=== PATIENT | female | born 1990 | race Caucasian/White ===

== ENCOUNTER → 2024-03-28 09:49 | Outpatient (BNVA) | payer OTHER, SELFPAY | PROVIDERS: Visit Provider Internal Medicine | DX: E07.9 Disorder of thyroid, unspecified (principal) | CPT/HCPCS: 36415; 84439; 84443 ==

== ENCOUNTER → 2024-06-30 10:27 | Outpatient (BNVA) | payer OTHER, SELFPAY | PROVIDERS: PCP Student in an Organized Health Care Education/Training Program; Visit Provider Internal Medicine | DX: E06.3 Autoimmune thyroiditis (principal) | CPT/HCPCS: 36415; 84439; 84443; 84480 ==

== ENCOUNTER → 2024-12-09 10:48 | Outpatient (BNVA) | payer OTHER, SELFPAY | PROVIDERS: PCP Student in an Organized Health Care Education/Training Program; Referring Provider Internal Medicine; Visit Provider Internal Medicine Rheumatology | DX: Z79.899 Other long term (current) drug therapy (principal) | CPT/HCPCS: 36415; 82306; 83520; 85651; 86140; 86480; 86704; 86803; 87340 ==

== ENCOUNTER → 2024-12-23 08:08 | Outpatient (BNVA) | payer OTHER, SELFPAY | PROVIDERS: PCP Student in an Organized Health Care Education/Training Program; Visit Provider Orthopaedic Surgery | DX: M79.642 Pain in left hand (principal); M79.641 Pain in right hand; M67.442 Ganglion, left hand; M67.441 Ganglion, right hand | CPT/HCPCS: 73130 ==

== ENCOUNTER 2025-01-21 07:09 | Day surgery (SDC) | payer OTHER, SELFPAY ==
[2025-01-21] VITALS (7 sets, daily range): BP systolic 120–142; BP diastolic 63–89; PULSE 65–84; RESP 14–18; TEMP 36.2–36.6; O2SAT 95–100; BMI 32.2
[2025-01-21 07:31] LABS: OR HCG Qualitative Urine Negative (Negative)
--- NOTE | 2025-01-21 07:45 | W.PM.OPSUD ---
Surgery/Procedure H&P Update DATE OF PROCEDURE: January 21, 2025 DATE H&P PERFORMED: 01/20/25 H&P UPDATE INFORMATION: I have reviewed H&P completed within last 30 days, I have examined patient prior to procedure and No changes to prior documentation PRIMARY INDICATION FOR PROCEDURE: Mucinous cyst right index finger PIP joint PLANNED PROCEDURE: Operation Date: 01/21/25 09:00 Proposed Procedures p RIGHT Index Finger Excision Of Ganglion Cyst(Right) - Sean Ferrell MD
--- NOTE | 2025-01-21 08:06 | ANES.PREANE2 ---
Pre-Anesthetic Assessment Height/Weight: Height 5 ft 3 in Weight 182 lb Temp Pulse Resp BP Pulse Ox O2 Del Method 97.9 F 65 18 137/88 99 Room Air 01/21/25 07:40 01/21/25 07:40 01/21/25 07:40 01/21/25 07:40 01/21/25 07:40 01/21/25 07:40 Preop Diagnosis: Ganglion cyst Operation Date: 01/21/25 09:00 Proposed Procedures p RIGHT Index Finger Excision Of Ganglion Cyst(Right) - Sean Ferrell MD Was Beta Homer taken within 24 hours: N/A Was Clonidine taken within 24 hours: N/A Last intake: Intake Last Liquid Date 01/20/25 Last Liquid Time 23:00 Last Solid Date 01/20/25 Last Solid Time 23:00 Social No alcohol and No tobacco Exam alert, oriented x 3, clear to auscultation bilaterally and regular rate & rhythm Airway Submandibular: within normal limits Cervical ROM: within normal limits Mallampati: Class I Dentition: full Anesthetic Plan ASA status: 2 Anesthesia: Choice Other: No prior issues with anesthesia NPO since yesterday evening History of hypothyroidism on Synthroid History of RA, very occasional prednisone use Denies any cardiac or pulmonary issues test negative Medications/Allergies Home Medications ?Medication ?Instructions ?Recorded ?Confirmed ?Last Taken ?Type levothyroxine 100 mcg tablet 100 mcg PO DAILY 03/28/24 01/20/25 01/21/25 History phentermine 37.5 mg tablet 37.5 mg PO DAILY 03/28/24 01/20/25 01/13/25 History zolpidem 10 mg tablet (Ambien) 10 mg PO PRN PRN Insomnia 03/28/24 01/20/25 Unknown History escitalopram oxalate 10 mg tablet 10 mg PO DAILY 10/13/24 01/20/25 01/20/25 History leflunomide 20 mg tablet 20 mg PO DAILY #30 tabs 12/09/24 01/20/25 01/20/25 Rx liothyronine 5 mcg tablet 5 mcg PO DAILY 01/20/25 01/20/25 01/20/25 History prednisone 20 mg tablet 20 mg PO PRN PRN joint pain flare 01/20/25 01/20/25 01/06/25 History Allergies Allergy/AdvReac Type Severity Reaction Status Date / Time promethazine (From Phenergan) Allergy Severe algy-seizur Verified 01/20/25 09:22 es walnut Allergy Unknown Verified 01/20/25 09:22 tramadol AdvReac Severe ADR-Seizure Verified 01/20/25 09:22 Current Medications Generic Name Dose Route Start Last Admin Trade Name Freq PRN Reason Stop Dose Admin Sodium Chloride 1,000 mls @ 30 mls/hr 01/21/25 07:30 01/21/25 07:46 Sodium Chloride 0.9% IV 01/22/25 07:29 30 mls/hr .Q24H ROX Administration PFSH Anesthesia Medical History (Updated 12/23/24 @ 08:58 by Sean Ferrell MD) Cyst of skin and subcutaneous tissue Immunization counseling High risk medication use Seronegative rheumatoid arthritis of both hands Depression with anxiety Tarsal tunnel syndrome Fibromyalgia Seizures stress induced Surgical History History of delivery x2 History of bilateral tubal ligation History of cholecystectomy History of appendectomy S/P foot surgery, right on bottom of foot maybe planters Family History Other Cancer Diabetes Heart disease Hypertension Rheumatoid arthritis Denies family history of Lupus (systemic lupus erythematosus) Migraines Stroke Social History Smoking and tobacco/nicotine status: never used tobacco/nicotine Substance/Drug Use: current Other substance/drug use details: medical marijuana
[2025-01-21] MEDS: ceFAZolin 2,000 mg SDV 2000 MG IVP (08:11)
--- NOTE | 2025-01-21 09:05 | PM.OP ---
Operative Report Date of procedure: January 21, 2025 Surgeon: Sean Ferrell MD Procedure: Preop diagnosis: Painful nodule dorsal aspect PIP joint index finger on the right Postoperative diagnosis: Same Procedure: Excisional biopsy soft tissue mass right index finger Surgeon: Sean Ferrell MD Anesthesia: IV sedation with local anesthetic Specimen: Soft tissue mass right index finger EBL: None Indications: Helen is a 34-year-old white female who presented to the orthopedic clinics for evaluation of painful nodules on the dorsal aspects of bilateral index fingers at the level of PIP joint. States has been going on for some time they get larger and smaller, and they are very painful and hinder her activities. Patient does have a history of rheumatoid arthritis and this could be rheumatoid nodules versus mucinous cyst coming from the joint line. After evaluation patient was offered excisional biopsy of the nodules doing 1 hand at a time so as not to handicap her too much. All risk benefits treatment alternatives discussed with her and she is agreeable to this at this time. Procedure: After obtaining her consent patient was taken the operative room placed on her [facility] and had IV sedation administered. Armboard was applied to this [facility] and right arm was prepped and draped usual fashion. After surgical timeout patient had 1% lidocaine plain injected into the base of her index finger right hand for anesthetic effect. Hand was then exsanguinated with the Esmarch wrap and Esmarch was used as a tourniquet on the mid forearm region on the right side. After testing for anesthetic effect perpendicular incision was made over the nodule on the dorsal aspect of her PIP joint right index finger. This was perpendicular to the axis of the finger. Sharp dissection taken down to subcutaneous tissues. Subsequently using tenotomy scissors skin edges were raised on either side of this mass. Tenotomy scissors were then used to dissect this off the campuzano of the extensor mechanism of the right index finger. Tissue was removed and mass. Further inspection found that there was a small rent in the campuzano going down through the tendon sheath. This was repaired with 4-0 Vicryl [id number] suture. Further evaluation found no other abnormalities. Skin was then closed with 3-0 nylon horizontal mattress sutures. Specimen was sent to pathology for evaluation. Wound was then cleaned and dried dressed Xeroform gauze sterile gauze dressing sterile fluff dressing Kerlix wrap and an Raimundo wrap for compression. Patient awakened transferred to cover room stable condition
--- NOTE | 2025-01-21 09:48 | P.ANESASSM_ITS ---
Pre-Anesthetic Assessment Height/Weight: Height 5 ft 3 in Weight 182 lb Temp Pulse Resp BP Pulse Ox O2 Del Method 97.2 F L 82 16 132/89 100 Room Air 01/21/25 09:12 01/21/25 09:40 01/21/25 09:40 01/21/25 09:40 01/21/25 09:40 01/21/25 09:40 Preop Diagnosis: Ganglion cyst Operation Date: 01/21/25 09:00 Proposed Procedures p RIGHT Index Finger Excision Of Ganglion Cyst(Right) - Sean Ferrell MD Last intake: Intake Last Liquid Date 01/20/25 Last Liquid Time 23:00 Last Solid Date 01/20/25 Last Solid Time 23:00 Medications/Allergies Home Medications ?Medication ?Instructions ?Recorded ?Confirmed ?Last Taken ?Type levothyroxine 100 mcg tablet 100 mcg PO DAILY 03/28/24 01/20/25 01/21/25 History phentermine 37.5 mg tablet 37.5 mg PO DAILY 03/28/24 0 01/20/25 01/13/25 History zolpidem 10 mg tablet (Ambien) 10 mg PO PRN PRN Insomn ia 03/28/24 01/20/25 Unknown History escitalopram oxalate 10 mg tablet 10 mg PO DAILY 10/1301/20/25 01/20/25 History leflunomide 20 mg tablet 20 mg PO DAILY #30 tabs 09/3001/20/25 01/20/25 Rx liothyronine 5 mcg tablet 5 mcg PO DAILY 01/20/2501/0601/20/25 History prednisone 20 mg tablet 20 mg PO PRN PRN joint pain flare 01/20/25 01/20/25 01/06/25 History hydrocodone 5 mg-acetaminophen 325 1 tab PO Q6H PRN pa in #30 tabs 01/21/25 Unknown Rx mg tablet Allergies Allergy/AdvReac Type Severity Reaction Status Date / Time promethazine (From Phenergan) Allergy Severe algy-seizur Verified 01/20/25 09:22 es walnut Allergy Unknown Verified 01/20/25 09:22 tramadol AdvReac Severe ADR-Seizure Verified 01/20/25 09:22 [facility] Anesthesia Medical History (Updated 12/23/24 @ 08:58 by Sean Ferrell MD) Cyst of skin and subcutaneous tissue Immunization counseling High risk medication use Seronegative rheumatoid arthritis of both hands Depression with anxiety Tarsal tunnel syndrome Fibromyalgia Seizures stress induced Surgical History History of delivery x2 History of bilateral tubal ligation History of cholecystectomy History of appendectomy S/P foot surgery, right on bottom of foot maybe planters Family History Other Cancer Diabetes Heart disease Hypertension Rheumatoid arthritis Denies family history of Lupus (systemic lupus erythematosus) Migraines Stroke Social History Smoking and tobacco/nicotine status: never used tobacco/nicotine Substance/Drug Use: current Other substance/drug use details: medical marijuana
--- NOTE | 2025-01-21 09:48 | ANE.PACU2 ---
Inpatient post-anesthesia follow up: Airway intact: Yes Vital signs: Temperature 97.2 F Pulse Rate 82 Respiratory Rate 16 Blood Pressure 132/89 Pulse Oximetry 100 Oxygen Delivery Me thod Room Air Oxygen Flow Rate Fraction of Inspir ed Oxygen Hydration adequate: Yes Nausea and vomiting: No Pain level: 1 Mental status: Baseline
== END 2025-01-21 09:48 | disposition home or self-care (01) ==
PROVIDERS: Student in an Organized Health Care Education/Training Program; PCP Student in an Organized Health Care Education/Training Program; Visit Provider Orthopaedic Surgery
PROC: (CPT 26160; principal; 2025-01-21 08:50)
DX: M67.441 Ganglion, right hand (principal); E03.9 Hypothyroidism, unspecified; M06.9 Rheumatoid arthritis, unspecified; F41.8 Other specified anxiety disorders; R56.9 Unspecified convulsions; F12.90 Cannabis use, unspecified, uncomplicated
CPT/HCPCS: 26160; 81025; 88304; J0690; J1100; J2250; J2405; J2704; J3010; J3490; J7030; J9999

== ENCOUNTER 2025-02-03 12:45 | Day surgery (SDC) | payer OTHER, SELFPAY ==
[2025-02-03 12:30] VITALS: BMI 32.2
[2025-02-03 14:11] LABS: OR HCG Qualitative Urine Negative (Negative)
--- NOTE | 2025-02-03 15:08 | W.PM.OPSUD ---
Surgery/Procedure H&P Update DATE OF PROCEDURE: February 03, 2025 DATE H&P PERFORMED: 02/03/25 H&P UPDATE INFORMATION: I have reviewed H&P completed within last 30 days, I have examined patient prior to procedure and No changes to prior documentation PREOP DIAGNOSIS: Mucoid cyst PIP joint left index finger PLANNED PROCEDURE: Operation Date: 02/03/25 15:25 Proposed Procedures p LEFT Index Finger Excision Of Ganglion Cyst(Left) - Sean Ferrell MD
[2025-02-03] MEDS: ceFAZolin 2,000 mg SDV 2000 MG IVP (15:11)
[2025-02-03] MEDS: BUPivacaine 0.5% INJ 10 mL INJECTION (15:13)
[2025-02-03 15:48] VITALS: BP 125/80; PULSE 85; RESP 25; TEMP 36.9; O2SAT 95
[2025-02-03 15:53] VITALS: BP 122/74; PULSE 82; RESP 18; O2SAT 97
[2025-02-03 15:58] VITALS: BP 129/78; PULSE 80; RESP 17; O2SAT 98
[2025-02-03 16:03] VITALS: BP 125/87; PULSE 97; RESP 17; TEMP 36.2; O2SAT 96
--- NOTE | 2025-02-03 16:13 | PM.OP ---
Operative Report Date of procedure: February 03, 2025 Surgeon: Sean Ferrell MD Procedure: Preoperative diagnosis: Mucoid cyst dorsal aspect PIP joint left index finger Postoperative diagnosis: Same Procedure: Excisional biopsy mucoid cyst left index finger Surgeon: Sean Ferrell MD Anesthesia: IV sedation with local anesthetic EBL: None Specimens: None Indications: Helen is a 34-year-old white female who is previously had a mucoid cyst removed from her right index finger. She has had multitude of ganglion cyst other cystic problems on her body that have been surgically removed. She was been to be seen about bilateral cysts on each index finger has already undergone excisional biopsy of the right index finger now is requesting surgery on the left index finger. Patient is well aware all risk benefits treatment alternatives. Procedure: After obtaining her consent patient taken to the operating room placed operative table supine position IV sedation was administered. Left upper extremity and hand were prepped and draped usual fashion. After surgical timeout digital block was applied to the left index finger using half percent Marcaine plain. Once good anesthesia been achieved transverse incision made over the dorsum of the PIP joint of the left index finger directly over the cystic area. Sharp dissected gone down to subcutaneous tissues. Tenotomy scissors were then used to dissect out the subcutaneous tissue around the extensor campuzano and the cyst. Extensor campuzano was divided longitudinally along course of its fibers and then the cyst was shelled out underneath using small rongeurs as well as tenotomy scissors and pickups. Once all material was removed extensor campuzano was repaired with 4-0 Vicryl [id number] suture. Skin was then closed with 4-0 nylon horizontal mattress sutures. Wounds were then dressed with Xeroform gauze sterile gauze dressing Wesley wrap and Raimundo wrap for compression. Patient was waken transferred to cover room in stable condition
[2025-02-03 16:30] VITALS: BP 132/87; PULSE 75; RESP 16; TEMP 36.4; O2SAT 98
--- NOTE | 2025-02-03 16:45 | ANE.PACU2 ---
Inpatient post-anesthesia follow up: Airway intact: Yes Vital signs: Temperature 97.6 F Pulse Rate 75 Respiratory Rate 16 Blood Pressure 132/87 Pulse Oximetry 98 Oxygen Delivery Me thod Room Air Oxygen Flow Rate Fraction of Inspir ed Oxygen Hydration adequate: Yes Nausea and vomiting: No Pain level: 2 Mental status: Baseline
== END 2025-02-03 16:45 | disposition home or self-care (01) ==
PROVIDERS: Student in an Organized Health Care Education/Training Program; PCP Student in an Organized Health Care Education/Training Program; Visit Provider Orthopaedic Surgery
PROC: (CPT 26160; principal; 2025-02-03 15:15)
DX: M67.442 Ganglion, left hand (principal); M79.7 Fibromyalgia; F41.8 Other specified anxiety disorders; M06.042 Rheumatoid arthritis without rheumatoid factor, left hand; M06.041 Rheumatoid arthritis without rheumatoid factor, right hand; G40.89 Other seizures
CPT/HCPCS: 26160; 81025; J0690; J2250; J2704; J3010; J3490; J7030; J9999

== ENCOUNTER → 2025-04-14 10:18 | Outpatient (BNVA) | payer OTHER, SELFPAY | PROVIDERS: PCP Student in an Organized Health Care Education/Training Program; Visit Provider Internal Medicine | DX: E06.3 Autoimmune thyroiditis (principal) | CPT/HCPCS: 36415; 84439; 84443; 84480 ==